=== PATIENT | male | born 1995 | race African-American/Black ===

== ENCOUNTER 2024-01-19 14:24 | Inpatient (IN) | payer OTHER ==
[2024-01-19 14:50] VITALS: BMI 22.5
[2024-01-19] MEDS ORDERED: BISMUTH SUBSALICYLATE 524 MG/30 ML PO PRN (16:01)
[2024-01-19] MEDS ORDERED: hydrOXYzine PAMOATE 25 MG CAPSULE (FP) PO PRN (16:01)
[2024-01-19] MEDS ORDERED: BENZONATATE 200 MG CAPSULE PO PRN (16:01)
[2024-01-19] MEDS ORDERED: IBUPROFEN 600 MG TABLET (FP) PO PRN (16:01)
[2024-01-19] MEDS ORDERED: POLYETHYLENE GLYCOL (HEALTHYLAX) 3350 17 GM PACKET PO PRN (16:01)
[2024-01-19] MEDS ORDERED: NALOXONE HCL 0.4 MG/ML VIAL IM PRN (16:01)
[2024-01-19] MEDS ORDERED: MAGNESIUM HYDROX 2400MG/30ML ORAL SUSPENSION 30 ML CUP PO PRN (16:01)
[2024-01-19] MEDS ORDERED: LOPERAMIDE HCL 2 MG CAPSULE PO PRN (16:01)
[2024-01-19] MEDS ORDERED: NALOXONE HCL (KLOXXADO) 8 MG SPRAY NS PRN (16:01)
[2024-01-19] MEDS ORDERED: MAG HYDROX/AL HYDROX/SIMETH 30 ML UNIT-DOSE CUP PO PRN (16:01)
[2024-01-19] MEDS ORDERED: METHOCARBAMOL 500 MG TABLET PO PRN (16:01)
[2024-01-19] MEDS ORDERED: ACETAMINOPHEN 325 MG TABLET (FP) PO PRN (16:01)
[2024-01-19] MEDS ORDERED: BENZOCAINE/MENTHOL (CHLORASEPTIC ) LOZENGE MM PRN (16:01)
[2024-01-19] MEDS ORDERED: guaiFENesin 600 MG TABLET.ER (FP) PO PRN (16:01)
[2024-01-19] MEDS ORDERED: DICYCLOMINE HCL 10 MG CAPSULE PO PRN (16:01)
[2024-01-19] MEDS ORDERED: IBUPROFEN 400 MG TABLET (FP) PO PRN (16:01)
[2024-01-19] MEDS ORDERED: chlordiazePOXIDE HCL 25 MG CAPSULE PO PRN (16:04)
[2024-01-19] MEDS ORDERED: chlordiazePOXIDE HCL 25 MG CAPSULE ONE (17:04)
[2024-01-19] MEDS: chlordiazePOXIDE HCL 25 MG CAPSULE PO SCH (17:07)
[2024-01-19] MEDS: THIAMINE HCL 100 MG TABLET (FP) PO SCH (22:14)
[2024-01-19] MEDS: MELATONIN 5 MG TABLETS PO SCH (22:15)
[2024-01-20] MEDS: ONDANSETRON *ODT* 4 MG TABLET SL PRN (01:12)
[2024-01-20] MEDS: PRENATAL VITAMINS W/ FOLIC ACID TABLET (FP) PO SCH (10:10)
[2024-01-20 13:04] LABS: HEMATOCRIT 37.5 % (35.4-49); HEMOGLOBIN 12.9 GM/dL (11.7-16.9); MCH 33.3 pg (25.7-33.7); MCHC 34.3 g/dl (32.0-35.9); MEAN CELL VOLUME 96.9 fl (80-96); MEAN PLT VOLUME 8.3 fl (7.5-11.1); PLATELET COUNT 200 10^3/uL (134-434); RBC 3.87 M/mm3 (4.00-5.60); RDW 13.9 % (11.9-15.9); WHITE BLOOD COUNT 4.4 K/mm3 (4.0-10.0)
[2024-01-20 13:19] LABS: CHLORIDE 99 mmol/L (98-107); SODIUM 137 mmol/L (136-145)
[2024-01-20 13:20] LABS: CALCIUM 9.2 mg/dL (8.5-10.1)
[2024-01-20 13:21] LABS: ALBUMIN 3.6 g/dl (3.4-5.0); ANION GAP 9 mmol/L (4-13); BLOOD UREA NITROGEN 6.8 mg/dL (7-18); CO2 29 mmol/L (21-32); GLUCOSE,RANDOM 111 mg/dL (74-106)
[2024-01-20 13:24] LABS: CREATININE 0.8 mg/dL (0.55-1.3); SGPT/ALT 45 U/L (13-61)
[2024-01-20 13:26] LABS: BILIRUBIN,TOTAL 2.2 mg/dL (0.2-1); TOT PROT 7.1 g/dl (6.4-8.2)
[2024-01-20 13:27] LABS: ALK PHOS 65 U/L (45-117); SGOT/AST 41 U/L (15-37)
[2024-01-21] MEDS: chlordiazePOXIDE HCL 25 MG CAPSULE PO SCH (05:29)
[2024-01-21 09:27] VITALS: BP 135/85; PULSE 93; RESP 16; TEMP 98
[2024-01-21 12:13] LABS: POTASSIUM 3.7 mmol/L (3.5-5.1)
[2024-01-21 12:15] LABS: ALBUMIN 4.2 g/dl (3.4-5.0); BLOOD UREA NITROGEN 6.6 mg/dL (7-18)
[2024-01-21 12:19] LABS: CREATININE 0.9 mg/dL (0.55-1.3)
[2024-01-21 12:20] LABS: BILIRUBIN,TOTAL 2.3 mg/dL (0.2-1)
[2024-01-21 17:24] LABS: HIV INTERPRETATION NEGATIVE (NEGATIVE)
[2024-01-22] MEDS ORDERED: chlordiazePOXIDE HCL 10 MG CAPSULE PO PRN
[2024-01-22] MEDS ORDERED: chlordiazePOXIDE HCL 10 MG CAPSULE PO SCH (05:00)
[2024-01-23] MEDS ORDERED: chlordiazePOXIDE HCL 10 MG CAPSULE PO SCH (05:00)
[2024-01-24] MEDS ORDERED: chlordiazePOXIDE HCL 10 MG CAPSULE PO ONE (05:00)
== END 2024-01-21 09:32 | disposition left against medical advice (07) | DRG 770 ==
LOC: YASAS 14:24 → Y6N 16:46
PROVIDERS: ADMIT Allergy & Immunology; ATTEND Surgery
PROC: HZ2ZZZZ Detoxification Services for Substance Abuse Treatment (ICD-10-PCS; principal; 2024-01-19)
DX: F10.230 Alcohol dependence with withdrawal, uncomplicated (principal); F17.200 Nicotine dependence, unspecified, uncomplicated; R74.8 Abnormal levels of other serum enzymes
CPT/HCPCS: 36415; 80053; 80305; 80307; 82947; 85027; 86780; 87389; 87635; 87811; 93005; 93010; Q0162